=== PATIENT | male | born 1985 | race Caucasian/White ===

== ENCOUNTER 2017-12-14 19:54 | Emergency (ER) | payer MEDICAID ==
[~2017-12-14] VITALS: Ht 167.6 cm; Wt 84.1 kg
[2017-12-14 20:33] VITALS: Ht 167.6 cm; Wt 84.1 kg
[2017-12-14 21:40] VITALS: BP 107/69
== END 2017-12-14 21:40 | disposition home or self-care (01) ==
LOC: ED 19:54
DX: R51 Headache (principal); R42 Dizziness and giddiness; R11.0 Nausea; E78.00 Pure hypercholesterolemia, unspecified